=== PATIENT | male | born 1995 | race African-American/Black ===

== ENCOUNTER 2022-02-04 13:10 | Emergency (ER) | payer SELFPAY ==
[~2022-02-04] VITALS: Ht 185.4 cm; Wt 83.9 kg
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
--- NOTE | 2022-02-04 13:25 | NUR ---
MD at bedside, ,edical screenign exam in process.
[2022-02-04] MEDS ORDERED: HYDROCODONE/APAP 5-325MG TABLET PO ONE (13:30)
[2022-02-04] MEDS ORDERED: HYDROCODONE/APAP 5-325MG TABLET ONE (13:38)
--- NOTE | 2022-02-04 14:35 | NUR ---
PT WAS D/C'd TO HOME. D/C ISTRUCTIONS GIVEN TO THE PT BY DR DOSHI.
[2022-02-04 14:37] VITALS: BP 128/79
== END 2022-02-04 14:38 | disposition home or self-care (01) ==
LOC: ER 13:10
DX: M25.562 Pain in left knee (principal); M25.561 Pain in right knee; J45.909 Unspecified asthma, uncomplicated
CPT/HCPCS: 71045; A4663